=== PATIENT | female | born 1940 | race Caucasian/White ===

== ENCOUNTER → 2020-11-11 | Day surgery (SDC) | payer MEDICARE, MEDICAID ==
[~2020-11-11] MED LIST: ALPR-392 PO; ASPI-1497 PO; BENA40TA9 PO; CARV3.1242 PO; GABA-532 PO; LOV40 SQ; MEMA1CAP PO; METF-414 PO; NAPR-1164 PO; OMEP40CA12 PO; ONDA4TAB51 PO; ROSU5TAB10 PO; TRAM50TA3 PO; WARF5TAB76 PO
== END | disposition home or self-care (01) ==
LOC: RADANGIO 08:56
PROVIDERS: ATTEND Podiatrist Foot & Ankle Surgery
DX: M86.8X7 Other osteomyelitis, ankle and foot (principal); Z79.82 Long term (current) use of aspirin; Z79.84 Long term (current) use of oral hypoglycemic drugs; Z79.899 Other long term (current) drug therapy; Z98.890 Other specified postprocedural states
CPT/HCPCS: 36573; C1725

== ENCOUNTER 2022-06-24 17:41 | Inpatient (IN) | payer MEDICARE, MEDICAID ==
[~2022-06-24] VITALS: Ht 152.4 cm; Wt 53.2 kg
[~2022-06-24 17:41] MED LIST changes: -BENA40TA9 PO; +BENA40TA91 PO; +ENOX40SY27 SQ; -LOV40 SQ; -OMEP40CA12 PO; +OMEP40CA20 PO
[2022-06-24 19:24] LABS: HEMATOCRIT. 29.1 % (36.0-48.0); HEMOGLOBIN. 9.8 g/dL (12.0-16.0); MEAN CORPUSCULAR HEMOGLOBIN 31.7 pg (28.0-32.0); MEAN CORPUSCULAR VOLUME 93.8 fL (81.0-99.0); MEAN PLATELET VOLUME 8.5 fl (7.4-10.4); PLATELET 232 x1000/uL (130-400)
[2022-06-24 19:51] LABS: PLATELET ESTIMATE NORMAL
[2022-06-24 19:53] LABS: CHLORIDE 92 mEq/L (98-107)
[2022-06-24] MEDS ORDERED: PIPERACILLIN/TAZ 3.375G PREMIX 50 ML IV ONE (21:15)
[2022-06-24] MEDS ORDERED: VANCOMYCIN 1G PREMIX 200 ML IV ONE (21:15)
[2022-06-24] MEDS ORDERED: PIPERACILLIN/TAZ 3.375G PREMIX 50 ML IV NR (22:45)
[2022-06-24] MEDS ORDERED: VANCOMYCIN 1G PREMIX 200 ML IV NR (22:45)
[2022-06-24] MEDS ORDERED: SODIUM CHLORIDE 0.9% 1,000 ML IV ONE (23:30)
[2022-06-25] MEDS ORDERED: MORPHINE SULFATE 2 MG/ML CPJ (NOT FOR IM USE) IV ONE (00:30)
[2022-06-25] MEDS ORDERED: GUAIFENESIN 200MG/10ML SUGAR FREE UDC PO PRN (01:45)
[2022-06-25] MEDS ORDERED: HYDROCODONE/ACETAMINOPHEN 5/325MG TABLET PO PRN (01:45)
[2022-06-25] MEDS ORDERED: ACETAMINOPHEN 325MG TABLET PO PRN (01:45)
[2022-06-25] MEDS ORDERED: DOCUSATE SODIUM 100MG CAPSULE PO PRN (01:45)
[2022-06-25] MEDS ORDERED: MAGNESIUM/ALUMINUM HYDROXIDE/SIMETHICONE 30ML UDC PO PRN (01:45)
[2022-06-25] MEDS ORDERED: IPRATROPIUM/ALBUTEROL 0.5-3(2.5)MG/3ML NEB HHN PRN (01:45)
[2022-06-25] MEDS ORDERED: ONDANSETRON HCL 4MG/2ML INJ IV PRN (01:45)
[2022-06-25] MEDS ORDERED: NALOXONE HCL 0.4MG/ML VIAL IV PRN (02:00)
[2022-06-25] MEDS ORDERED: DEXTROSE 50% WATER 50ML SYRINGE IV PRN (02:15)
[2022-06-25] MEDS ORDERED: SODIUM CHLORIDE 0.9% 1,000 ML IV NR (02:30)
[2022-06-25] MEDS ORDERED: SODIUM POLYSTYRENE SULFONATE 15 G/60 ML BOT PO NR (02:30)
[2022-06-25 03:50] LABS: CLARITY URINE CLOUDY (CLEAR); COLOR URINE YELLOW (YELLOW); KETONES URINE NEGATIVE (NEGATIVE); LEUKOCYTE ESTERASE URINE 3+ (NEGATIVE); NITRITE URINE POSITIVE (NEGATIVE); OCCULT BLOOD URINE 2+ (NEGATIVE); PH URINE 6.5 (4.5-8.0); PROTEIN URINE 2+ (NEGATIVE); SPECIFIC GRAVITY URINE 1.011 (1.005-1.030); UROBILINOGEN URINE 0.2 E.U./dL (0.2-1.0)
[2022-06-25 04:02] LABS: SODIUM URINE RANDOM 26 mEq/L
[2022-06-25 06:02] LABS: PHOSPHORUS 1.5 mg/dL (2.5-4.9)
[2022-06-25 06:24] LABS: VITAMIN B12 SERUM >2000 pg/mL pg/mL (211-911)
[2022-06-25 06:25] LABS: FOLIC ACID (FOLATE) SERUM > 20.00 ng/mL (>5.38)
[2022-06-25] MEDS: BLOOD SUGAR DIAGNOSTIC STRIP TEST SCH ×4 (07:40→21:00)
[2022-06-25 07:48] VITALS: BP 140/90
[2022-06-25 08:00] VITALS: BP 136/86
[2022-06-25] MEDS: INSULIN LISPRO 100 UNITS/ML SUBCUT SCH ×5 (08:10→21:00)
[2022-06-25] MEDS ORDERED: ENOXAPARIN 30MG/0.3ML SYR SUBCUT SCH (09:00)
[2022-06-25] MEDS: PIPERACILLIN/TAZOBACTAM 3.375 G in DEXTROSE 5% WATER 50 ML IV SCH ×2 (09:33→14:09)
[2022-06-25] MEDS ORDERED: SODIUM PHOS,M-BASIC-D-BASIC 10 MM in DEXT 5% WATER 246.6667 ML IV NR (11:00)
[2022-06-25 12:00] VITALS: BP 184/99
[2022-06-25] MEDS: CLONIDINE 0.1MG TABLET PO PRN (12:12)
[2022-06-25 12:30] LABS: HEMATOCRIT. 27.6 % (36.0-48.0); HEMOGLOBIN. 9.2 g/dL (12.0-16.0); MEAN CORPUSCULAR HEMOGLOBIN 31.2 pg (28.0-32.0); MEAN CORPUSCULAR VOLUME 93.5 fL (81.0-99.0); MEAN PLATELET VOLUME 9.1 fl (7.4-10.4); PLATELET 230 x1000/uL (130-400); RED BLOOD CELL COUNT 2.95 mill/uL (4.2-5.4); RED CELL DISTRIBUTION WIDTH 15.3 % (11.6-14.6)
[2022-06-25] MEDS: AMLODIPINE 10MG TABLET PO SCH ×2 (12:30→13:26)
[2022-06-25 12:38] LABS: CHLORIDE 95 mEq/L (98-107)
[2022-06-25 16:00] VITALS: BP 121/80
[2022-06-25 16:38] LABS: PROTHROMBIN TIME 50.8 sec (9.6-11.0)
[2022-06-25 16:47] LABS: CREATINE KINASE 52 IU/L (26-192)
[2022-06-25 17:03] LABS: INR 5.4
[2022-06-25] MEDS: SODIUM CHLORIDE 0.9% 1,000 ML IV SCH (18:05)
[2022-06-25] MEDS: ACETAMINOPHEN 325MG TABLET PO PRN (18:08)
[2022-06-25 20:21] VITALS: BP 129/53
[2022-06-25 23:06] LABS: PLATELET ESTIMATE NORMAL
[2022-06-26] VITALS (7 sets, daily range): BP systolic 101–164; BP diastolic 49–65
[2022-06-26] MEDS: ACETAMINOPHEN 325MG TABLET PO PRN ×4 (03:07→23:47)
[2022-06-26] MEDS: SODIUM CHLORIDE 0.9% 1,000 ML IV SCH ×2 (03:20→22:30)
[2022-06-26] MEDS: BLOOD SUGAR DIAGNOSTIC STRIP TEST SCH ×4 (07:24→21:00)
[2022-06-26] MEDS: INSULIN LISPRO 100 UNITS/ML SUBCUT SCH ×4 (07:31→22:16)
[2022-06-26 08:26] LABS: BASOPHILS % 0.2 % (0.0-2.0); EOSINOPHILS % 0.8 % (0.0-5.0); HEMATOCRIT. 24.7 % (36.0-48.0); HEMOGLOBIN. 8.5 g/dL (12.0-16.0); LYMPHOCYTES % 8.1 % (20.0-50.0); MEAN CORPUSCULAR HEMOGLOBIN 31.7 pg (28.0-32.0); MEAN CORPUSCULAR VOLUME 92.7 fL (81.0-99.0); MEAN PLATELET VOLUME 8.8 fl (7.4-10.4); MONOCYTES % 6.8 % (2.0-8.0); NEUTROPHILS % 84.1 % (40.0-76.0); PLATELET 188 x1000/uL (130-400); RED BLOOD CELL COUNT 2.67 mill/uL (4.2-5.4); RED CELL DISTRIBUTION WIDTH 15.4 % (11.6-14.6)
[2022-06-26 08:29] LABS: CHLORIDE 93 mEq/L (98-107)
[2022-06-26 08:46] LABS: HDL CHOLESTEROL 9 mg/dL (40-59); LDL CHOLESTEROL 82 mg/dL (5-100); T4 FREE 1.37 ng/dL (0.76-1.46)
[2022-06-26 09:03] LABS: PROTHROMBIN TIME 62.7 sec (9.6-11.0)
[2022-06-26] MEDS: AMLODIPINE 10MG TABLET PO SCH (09:31)
[2022-06-26 09:38] LABS: INR 6.8
[2022-06-26] MEDS ORDERED: PHYTONADIONE 10MG/ML AMP SUBCUT NR (10:31)
[2022-06-26] MEDS: PIPERACILLIN/TAZOBACTAM 3.375 G in DEXTROSE 5% WATER 50 ML IV SCH ×3 (11:39)
[2022-06-26] MEDS: CEFAZOLIN 1000MG PREMIX 50 ML IV SCH (15:13)
[2022-06-27 00:50] VITALS: BP 175/76
[2022-06-27] MEDS: CEFAZOLIN 1000MG PREMIX 50 ML IV SCH ×2 (02:24→13:19)
[2022-06-27 04:00] VITALS: BP 179/79
[2022-06-27] MEDS: CLONIDINE 0.1MG TABLET PO PRN (05:53)
[2022-06-27] MEDS: ACETAMINOPHEN 325MG TABLET PO PRN ×3 (05:56→20:51)
[2022-06-27] MEDS: BLOOD SUGAR DIAGNOSTIC STRIP TEST SCH ×4 (07:14→20:47)
[2022-06-27 08:00] VITALS: BP 154/53
[2022-06-27] MEDS: AMLODIPINE 10MG TABLET PO SCH (08:54)
[2022-06-27] MEDS: INSULIN LISPRO 100 UNITS/ML SUBCUT SCH ×4 (08:55→20:47)
[2022-06-27 09:35] LABS: BASOPHILS % 0.3 % (0.0-2.0); EOSINOPHILS % 0.7 % (0.0-5.0); HEMATOCRIT. 27.8 % (36.0-48.0); HEMOGLOBIN. 9.5 g/dL (12.0-16.0); MEAN CORPUSCULAR HEMOGLOBIN 31.4 pg (28.0-32.0); MEAN CORPUSCULAR VOLUME 92.2 fL (81.0-99.0); MEAN PLATELET VOLUME 8.4 fl (7.4-10.4); MONOCYTES % 7.8 % (2.0-8.0); NEUTROPHILS % 82.2 % (40.0-76.0); PLATELET 247 x1000/uL (130-400); RED BLOOD CELL COUNT 3.02 mill/uL (4.2-5.4); RED CELL DISTRIBUTION WIDTH 15.5 % (11.6-14.6)
[2022-06-27 10:03] LABS: INR 3.1; PROTHROMBIN TIME 30.5 sec (9.6-11.0)
[2022-06-27 12:00] VITALS: BP 130/56
[2022-06-27] MEDS ORDERED: DEXTROSE 50% WATER 50ML SYRINGE IV PRN (12:00)
[2022-06-27 16:00] VITALS: BP 138/63
[2022-06-27] MEDS ORDERED: WARFARIN SODIUM 5MG TABLET PO SCH (18:00)
[2022-06-27 20:00] VITALS: BP 152/66
[2022-06-27] MEDS: SODIUM CHLORIDE 0.9% 1,000 ML IV SCH (22:30)
[2022-06-28] VITALS: BP 126/45
[2022-06-28] MEDS: CEFAZOLIN 1000MG PREMIX 50 ML IV SCH ×2 (02:08→14:22)
[2022-06-28 04:00] VITALS: BP 138/50
[2022-06-28] MEDS: ACETAMINOPHEN 325MG TABLET PO PRN (04:58)
[2022-06-28] MEDS: BLOOD SUGAR DIAGNOSTIC STRIP TEST SCH ×2 (05:31→12:31)
[2022-06-28 06:44] LABS: BASOPHILS % 0.6 % (0.0-2.0); EOSINOPHILS % 0.4 % (0.0-5.0); HEMATOCRIT. 25.7 % (36.0-48.0); HEMOGLOBIN. 8.8 g/dL (12.0-16.0); MEAN CORPUSCULAR HEMOGLOBIN 31.9 pg (28.0-32.0); MEAN CORPUSCULAR VOLUME 93.2 fL (81.0-99.0); MEAN PLATELET VOLUME 8.4 fl (7.4-10.4); MONOCYTES % 9.1 % (2.0-8.0); NEUTROPHILS % 81.9 % (40.0-76.0); PLATELET 294 x1000/uL (130-400); RED BLOOD CELL COUNT 2.76 mill/uL (4.2-5.4); RED CELL DISTRIBUTION WIDTH 15.6 % (11.6-14.6)
[2022-06-28 06:46] LABS: INR 1.7; PROTHROMBIN TIME 17.8 sec (9.6-11.0)
[2022-06-28 08:00] VITALS: BP 154/56
[2022-06-28] MEDS: INSULIN LISPRO 100 UNITS/ML SUBCUT SCH ×2 (08:10→12:36)
[2022-06-28] MEDS: AMLODIPINE 10MG TABLET PO SCH (08:52)
[2022-06-28] MEDS ORDERED: POTASSIUM CHLORIDE 20MEQ TABLET SR PO NR (09:00)
[2022-06-28] MEDS ORDERED: ASPIRIN 81MG TABLET PO SCH (09:15)
[2022-06-28 12:00] VITALS: BP 141/60
[2022-06-28 14:33] VITALS: BP 141/60
[2022-06-28] MEDS ORDERED: WARFARIN SODIUM 5MG TABLET PO SCH (18:00)
[2022-06-28] MEDS ORDERED: ATORVASTATIN CALCIUM 20MG TABLET PO SCH (21:00)
== END 2022-06-28 16:30 | disposition home health service (06) | DRG 871 ==
LOC: ER 17:41 → EDBEDREQ 23:35 → EDBEDREQTM 23:35 → MICUSO 23:42 → 7WST 06-25 06:23
PROVIDERS: ADMIT Internal Medicine; ATTEND Internal Medicine
DX: A41.9 Sepsis, unspecified organism (principal); G92.8 Other toxic encephalopathy; N17.0 Acute kidney failure with tubular necrosis; E46 Unspecified protein-calorie malnutrition; E87.1 Hypo-osmolality and hyponatremia; I42.0 Dilated cardiomyopathy; N39.0 Urinary tract infection, site not specified; Z16.11 Resistance to penicillins; D64.9 Anemia, unspecified; E11.42 Type 2 diabetes mellitus with diabetic polyneuropathy; E78.00 Pure hypercholesterolemia, unspecified; E78.1 Pure hyperglyceridemia; E87.5 Hyperkalemia; F03.90 Unspecified dementia, unspecified severity, without behavioral disturbance, psychotic disturbance, mood disturbance, and anxiety; I11.0 Hypertensive heart disease with heart failure; I25.10 Atherosclerotic heart disease of native coronary artery without angina pectoris; I50.82 Biventricular heart failure; R79.89 Other specified abnormal findings of blood chemistry; E86.0 Dehydration; M47.816 Spondylosis without myelopathy or radiculopathy, lumbar region; E87.6 Hypokalemia; R74.01 Elevation of levels of liver transaminase levels; M54.30 Sciatica, unspecified side; E78.5 Hyperlipidemia, unspecified; E86.1 Hypovolemia; R79.1 Abnormal coagulation profile; E88.09 Other disorders of plasma-protein metabolism, not elsewhere classified; Z95.1 Presence of aortocoronary bypass graft; Z95.2 Presence of prosthetic heart valve; Z95.5 Presence of coronary angioplasty implant and graft; Z79.01 Long term (current) use of anticoagulants; Z79.82 Long term (current) use of aspirin; Z79.84 Long term (current) use of oral hypoglycemic drugs; Z79.899 Other long term (current) drug therapy; I25.2 Old myocardial infarction; I08.0 Rheumatic disorders of both mitral and aortic valves; M43.16 Spondylolisthesis, lumbar region
CPT/HCPCS: 36415; 71045; 72100; 74176; 76700; 80048; 80053; 80061; 81003; 82306; 82550; 82570; 82607; 82728; 82746; 82962; 83036; 83540; 83550; 83605; 83735; 83880; 83930; 83935; 84100; 84145; 84300; 84439; 84443; 84484; 85025; 87077; 87186; 87426; 93005; 93306; 93970; 97162; 97166; 97530; 99285; A6261; C1893; J0690; J1650; J1815; J2270; J2543; J3370; J3430; J3490; J7030; J7060; A4315